=== PATIENT | male | born 1975 | race African-American/Black ===

== ENCOUNTER 2016-08-02 01:58 | Observation (INO) | payer OTHER ==
[~2016-08-02] VITALS: Ht 190.5 cm; Wt 149.3 kg
[2016-08-02 02:06] VITALS: BP 156/91; PULSE 96; O2SAT 97
[2016-08-02] MEDS ORDERED: METF1000 PO (02:24)
[2016-08-02] MEDS ORDERED: ATOR20TA15 PO (02:24)
[2016-08-02] MEDS ORDERED: TICA1TAB PO (02:24)
[2016-08-02] MEDS ORDERED: ASPI81TA19 (02:24)
[2016-08-02] MEDS ORDERED: LISI40TA PO (02:24)
[2016-08-02] MEDS ORDERED: METO50TA PO (02:24)
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
[2016-08-02] MEDS ORDERED: HYDROmorphone HCL PF 1 MG/ML VIAL ONE (05:02)
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
[2016-08-02] MEDS ORDERED: ceFAZolin 2 GM PREMIX 50 ML ONE (05:16)
[2016-08-02] MEDS ORDERED: ACETAMINOPHEN/HYDROcodone 325 MG/5 MG TAB PO PRN (05:30)
[2016-08-02] MEDS ORDERED: CHLORHEXIDINE GLUCONATE 2 % 1 PACK (2 CLOTHS) TOP PRN (05:30)
[2016-08-02] MEDS ORDERED: MAGNESIUM HYDROXIDE SUSP 30 ML CUP PO PRN (05:30)
[2016-08-02] MEDS ORDERED: ONDANSETRON HCL 4 MG/2 ML VIAL IV PRN (05:30)
[2016-08-02] MEDS ORDERED: MISCELLANEOUS NURSING INFORMATION XX SCH (05:30)
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
[2016-08-02] MEDS: HYDROmorphone HCL PF 1 MG/ML VIAL IVP PRN ×5 (05:41→20:36)
[2016-08-02] MEDS: LACTATED RINGER'S 1000 ML INJ 1,000 ML IV SCH ×2 (06:15→15:19)
[2016-08-02 08:00] VITALS: BP 144/90; PULSE 80; RESP 17; TEMP 97.8; O2SAT 96
[2016-08-02] MEDS: FAMOTIDINE 20 MG TAB PO SCH ×2 (08:48→20:28)
[2016-08-02] MEDS: METHOCARBAMOL 500 MG TAB PO SCH ×3 (08:48→20:27)
[2016-08-02] MEDS: DOCUSATE SODIUM 50 MG/SENNA 8.6 MG TAB PO SCH ×2 (08:48→20:27)
[2016-08-02 08:58] LABS: HEMATOCRIT 36.5 % (39.0-51.0); MEAN CELL VOLUME 79.2 FL (80.0-100.0); MEAN CORPUSCULAR HEMOGLOBIN 26.3 PG (27.0-34.0); MEAN CORPUSCULAR HGB CONC 33.2 % (32.0-36.0); PLATELET COUNT 207 TH/MM3 (150-450); RED BLOOD COUNT 4.61 MIL/MM3 (4.50-5.90); RED CELL DISTRIBUTION WIDTH 14.4 % (11.6-17.2); REVIEW FLAG FINAL; WHITE BLOOD COUNT 10.6 TH/MM3 (4.0-11.0)
[2016-08-02 09:32] LABS: ALKALINE PHOSPHATASE 101 U/L (45-117); ALT (GPT) 57 U/L (12-78); ANION GAP 9 MEQ/L (5-15); AST (GOT) 26 U/L (15-37); BICARBONATE 27.3 MEQ/L (21.0-32.0); BLOOD UREA NITROGEN 9 MG/DL (7-18); CHLORIDE 104 MEQ/L (98-107); GLOMERULAR FILTRATION RATE 93 ML/MIN (>89); POTASSIUM 3.7 MEQ/L (3.5-5.1); SODIUM (NA) 140 MEQ/L (136-145); TOTAL BILIRUBIN ADULT 0.3 MG/DL (0.2-1.0)
[2016-08-02] MEDS: ACETAMINOPHEN/HYDROcodone 325 MG/5 MG TAB PO PRN ×3 (11:41→20:28)
[2016-08-02 12:00] VITALS: BP 156/90; PULSE 80; RESP 18; TEMP 97.8; O2SAT 98
[2016-08-02] MEDS ORDERED: GLUCAGON 1 MG/ML VIAL OTHER PRN (12:00)
[2016-08-02] MEDS ORDERED: DEXTROSE 50% IN WATER 50 ML VIAL(D50) IV PUSH PRN (12:00)
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
[2016-08-02 16:00] VITALS: BP 145/88; PULSE 78; RESP 18; TEMP 98.8; O2SAT 96
[2016-08-02] MEDS: INSULIN ASPART SUPPLEMENTAL SCALE SQ SCH ×2 (16:00→21:00)
[2016-08-02] MEDS ORDERED: SENN1TAB PO (19:33)
[2016-08-02] MEDS ORDERED: MILKSUS PO (19:33)
[2016-08-02 19:50] VITALS: BP 139/76; PULSE 80; RESP 18; TEMP 98.1; O2SAT 94
[2016-08-02] MEDS: ATORVASTATIN 20 MG TAB PO SCH (20:28)
[2016-08-02] MEDS: METOPROLOL TARTRATE 50 MG TAB PO SCH (20:28)
[2016-08-03 00:55] VITALS: BP 120/73; PULSE 66; RESP 17; TEMP 97.3; O2SAT 94
[2016-08-03] MEDS: LACTATED RINGER'S 1000 ML INJ 1,000 ML IV SCH ×3 (01:19→21:19)
[2016-08-03] MEDS: ACETAMINOPHEN/HYDROcodone 325 MG/5 MG TAB PO PRN ×4 (03:37→21:18)
[2016-08-03] MEDS ORDERED: CHLORHEXIDINE GLUCONATE 2 % 1 PACK (2 CLOTHS) TOP SCH (04:00)
[2016-08-03] MEDS: METHOCARBAMOL 500 MG TAB PO SCH ×3 (05:47→21:17)
[2016-08-03] MEDS: HYDROmorphone HCL PF 1 MG/ML VIAL IVP PRN ×4 (05:48→21:21)
[2016-08-03] MEDS: INSULIN ASPART SUPPLEMENTAL SCALE SQ SCH ×4 (06:23→21:00)
[2016-08-03 07:28] LABS: AUTOMATED NEUTROPHIL # 6.6 TH/MM3 (1.8-7.7); BASOPHIL % 0.5 % (0.0-2.0); EOSINOPHIL # 0.6 TH/MM3 (0-0.4); EOSINOPHIL % 6.1 % (0.0-4.0); HEMO FLAGS DIFF FINAL; LYMPH % 14.6 % (9.0-44.0); LYMPHOCYTE # 1.3 TH/MM3 (1.0-4.8); MEAN CELL VOLUME 79.5 FL (80.0-100.0); MEAN CORPUSCULAR HEMOGLOBIN 27.4 PG (27.0-34.0); MEAN CORPUSCULAR HGB CONC 34.4 % (32.0-36.0); MONO % 7.2 % (0.0-8.0); NEUT % 71.6 % (16.0-70.0); PLATELET COUNT 201 TH/MM3 (150-450); RED CELL DISTRIBUTION WIDTH 14.2 % (11.6-17.2); WHITE BLOOD COUNT 9.2 TH/MM3 (4.0-11.0)
[2016-08-03 07:51] LABS: BICARBONATE 30.2 MEQ/L (21.0-32.0); POTASSIUM 3.6 MEQ/L (3.5-5.1)
[2016-08-03 08:38] VITALS: BP 140/78; PULSE 76; RESP 18; TEMP 98.8; O2SAT 96
[2016-08-03] MEDS: DOCUSATE SODIUM 50 MG/SENNA 8.6 MG TAB PO SCH ×2 (10:02→21:17)
[2016-08-03] MEDS: FAMOTIDINE 20 MG TAB PO SCH ×2 (10:02→21:21)
[2016-08-03] MEDS: LISINOPRIL 20 MG TAB PO SCH (10:02)
[2016-08-03] MEDS: METOPROLOL TARTRATE 50 MG TAB PO SCH ×2 (10:02→21:17)
[2016-08-03 12:04] VITALS: BP 137/89; PULSE 75; RESP 17; TEMP 99.1; O2SAT 93
[2016-08-03] MEDS: SODIUM CHLORIDE 0.9% FLUSH 5 ML FLUSH IVF PRN ×2 (13:00→16:38)
[2016-08-03] MEDS ORDERED: WALKER WHEELS/F1 MIS (13:27)
[2016-08-03] MEDS ORDERED: MISC-163 (13:28)
[2016-08-03] MEDS ORDERED: WHEEMIS3 (13:30)
--- NOTE | 2016-08-03 13:32 | HHI.PR ---
Objective Vitals/I&O Vital Signs Date Time Temp Pulse Resp B/P Pulse Ox O2 Delivery O2 Flow Rate FiO2 08/03/16 08:38 98.8 76 18 140/78 96 Labs Laboratory Tests Test 08/03/16 08/03/16 06:20 06:21 Sodium Level 141 Potassium Level 3.6 Chloride Level 104 Carbon Dioxide Level 30.2 Anion Gap 7 Blood Urea Nitrogen 7 Creatinine 0.95 Estimat Glomerular Filtration 105 Rate Random Glucose 120 Calcium Level 8.3 White Blood Count 9.2 Red Blood Count 4.40 Hemoglobin 12.0 Hematocrit 35.0 Mean Corpuscular Volume 79.5 Mean Corpuscular Hemoglobin 27.4 Mean Corpuscular Hemoglobin 34.4 Concent Red Cell Distribution Width 14.2 Platelet Count 201 Mean Platelet Volume 8.4 Neutrophils (%) (Auto) 71.6 Lymphocytes (%) (Auto) 14.6 Monocytes (%) (Auto) 7.2 Eosinophils (%) (Auto) 6.1 Basophils (%) (Auto) 0.5 Neutrophils # (Auto) 6.6 Lymphocytes # (Auto) 1.3 Monocytes # (Auto) 0.7 Eosinophils # (Auto) 0.6 Basophils # (Auto) 0.0 CBC Comment DIFF FINAL Differential Comment Annalisa King Aug 03, 2016 13:32
[2016-08-03 16:05] VITALS: BP 143/82; PULSE 78; RESP 18; TEMP 98.1; O2SAT 93
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
[2016-08-03 20:15] VITALS: BP 151/83; PULSE 82; RESP 19; TEMP 97.4; O2SAT 98
[2016-08-03] MEDS: ATORVASTATIN 20 MG TAB PO SCH (21:17)
[2016-08-04 00:05] VITALS: BP 130/71; PULSE 84; RESP 19; TEMP 97.7; O2SAT 94
[2016-08-04] MEDS: HYDROmorphone HCL PF 1 MG/ML VIAL IVP PRN (00:32)
[2016-08-04] MEDS: METHOCARBAMOL 500 MG TAB PO SCH ×2 (05:56→13:28)
[2016-08-04] MEDS: ACETAMINOPHEN/HYDROcodone 325 MG/5 MG TAB PO PRN ×4 (05:56→17:26)
[2016-08-04] MEDS: INSULIN ASPART SUPPLEMENTAL SCALE SQ SCH ×3 (05:58→16:00)
[2016-08-04 07:08] VITALS: BP 131/79; PULSE 70; RESP 18; TEMP 97.1; O2SAT 93
[2016-08-04] MEDS: LACTATED RINGER'S 1000 ML INJ 1,000 ML IV SCH ×2 (07:19→15:25)
[2016-08-04] MEDS: LISINOPRIL 20 MG TAB PO SCH (09:09)
[2016-08-04] MEDS: DOCUSATE SODIUM 50 MG/SENNA 8.6 MG TAB PO SCH (09:09)
[2016-08-04] MEDS: FAMOTIDINE 20 MG TAB PO SCH (09:09)
[2016-08-04] MEDS: METOPROLOL TARTRATE 50 MG TAB PO SCH (09:10)
[2016-08-04] MEDS: SODIUM CHLORIDE 0.9% FLUSH 5 ML FLUSH IVF PRN (09:10)
[2016-08-04 10:15] VITALS: O2SAT 96
[2016-08-04 11:13] VITALS: BP 133/80; PULSE 67; RESP 18; TEMP 98.1; O2SAT 92
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
[2016-08-04 16:00] VITALS: BP 158/90; PULSE 78; RESP 18; TEMP 97.9; O2SAT 96
[2016-08-04] MEDS ORDERED: NORC5TAB PO (17:55)
== END 2016-08-04 20:19 | disposition home or self-care (01) ==
LOC: NEPE 01:58 → INTOOBSV 04:25 → NEDA 04:25 → N06B 06:42 → UNDODISIN 08-04 20:19
PROVIDERS: ADMIT Surgery Trauma Surgery; ATTEND Surgery Trauma Surgery
DX: S93.402A Sprain of unspecified ligament of left ankle, initial encounter (principal); S37.032A Laceration of left kidney, unspecified degree, initial encounter; S32.401A Unspecified fracture of right acetabulum, initial encounter for closed fracture; S80.12XA Contusion of left lower leg, initial encounter; S80.11XA Contusion of right lower leg, initial encounter; I25.10 Atherosclerotic heart disease of native coronary artery without angina pectoris; I10 Essential (primary) hypertension; E11.9 Type 2 diabetes mellitus without complications; E78.00 Pure hypercholesterolemia, unspecified; Z79.84 Long term (current) use of oral hypoglycemic drugs; V29.9XXA Motorcycle rider (driver) (passenger) injured in unspecified traffic accident, initial encounter
CPT/HCPCS: 72125; 73700; 80048; 80053; 82948; 85025; 85027; 94150; 97110; 97116; 97162; 97166; 97530; 97535; 99285; G0378; J0690; J1170; J2405; J7120; L2114